=== PATIENT | male | born 1955 | race Caucasian/White ===

== ENCOUNTER 2018-12-16 00:37 | Observation (INO) ==
--- NOTE | 2018-12-16 12:15 | Internal Med History&Physical ---
Date of Encounter: 12/16/18 Time of Encounter: 11:00 Internal Medicine - H&P: HPI Chief complaint: Chest pain Admitted From: Home Plans for Post Hospital Care: Home History of present illness: Patient is a 63-year-old male with past medical history significant for atrial fibrillation who presents to the ER due to chest pressure. Patient reports a sudden onset of fullness in his chest without radiation and denies any provoking or relieving factors. Patient did state some improvement after belching and with taking his PPI. Patient continued to have symptoms with associated dizziness so decided come to the ER for evaluation. In the ER she was first set of troponins were negative. Patient will be admitted to the observation unit for ACS rule out. Past Med Surg Social Fam HX - Past Medical History Medical history: atrial fibrillation, GERD, hyperlipidemia Additional medical history: MINNIE,depression,impotence of organic nature,arrythmia cardiac,atherosclerosis,prostate hypertrophy benign,affective disorder,actinic keratosis,atherosclerosis of coronary artery Psychiatric history: anxiety, depression, panic disorder - Past Surgical History Surgical History: other Additional surgical history: nose fracture repair surgery,c olonoscopy,lithotripsy - Social History Smoking Status: Never smoker Smokeless Tobacco Status: Yes Alcohol use: occasionally, recent Drug use: none - Additional Family History Additional family history: Mom and dad with coronary arterial disease Internal Medicine - H&P: Meds Bisoprolol Fumarate 2.5 mg PO DAILY 12/13/18 [History] Pantoprazole Sodium 40 mg PO DAILY 12/13/18 [History] Allergy/AdvReac Type Severity Reaction Status Date / Time Penicillins Allergy See Verified 12/15/18 21:28 Comments pravastatin AdvReac Muscle Pain Verified 12/15/18 21:28 simvastatin AdvReac Muscle Pain Verified 12/15/18 21:28 All Systems PM: A 10-system review of systems was performed and is negative for pertinent findings except as documented above in the HPI. - Constitutional Vitals: Temp Pulse Resp BP Pulse Ox 97.8 F 64 18 128/77 95 12/16/18 11:58 12/16/18 11:58 12/16/18 11:58 12/16/18 11:58 12/16/18 11:58 Exam: General appearance: Present: A&O X 3, no acute distress - Head Head exam: Present: normocephalic - Eye Eye exam: Present: normal appearance - ENT ENT exam: Present: mucous membranes moist - Respiratory Respiratory exam: Present: CTAB. Absent: accessory muscle use, rales, rhonchi, wheezes - Cardiovascular Cardiovascular exam: Present: RRR, +S1, +S2. Absent: diastolic murmur, gallop, rubs, systolic murmur - GI/Abdominal GI/Abdominal exam: Present: normal bowel sounds, soft, no peritoneal signs. Absent: distended, tenderness - Extremities Exam Extremities exam: Absent: pedal edema - Neurological Exam Neurological exam: Present: alert, oriented X3, no focal deficits. Absent: altered - Psychiatric Psychiatric exam: -normal mood Skin exam: -normal color - Assessment and Plan (1) Chest pain Current Visit: No Status: Acute Assessment and plan: Patient's first set of troponins negative. Will monitor on telemetry and trend serial troponins. If Troponins negative, nuclear medicine stress test should be ordered in the morning for ACS rule out Qualifiers: Chest pain type: unspecified Qualified Code(s): R07.9 - Chest pain, unspecified (2) Frequent unifocal premature ventricular contractions Current Visit: No Status: Acute Assessment and plan: Continue home dose of beta greg (3) DVT prophylaxis Current Visit: Yes Status: Acute Assessment and plan: Subcutaneous heparin - Time Spent With Patient Total time spent is greater than 50% in coordination of care (as documented) at patient's floor/unit and/or counseling patient:
[2018-12-16] MEDS ORDERED: Naloxone 0.4 MG/ML INJ IVP PRN (12:18)
[2018-12-17 02:05] LABS: Basophils % 0.4 %; Eosinophils # 0.1 K/mcL (0.0-0.6); Eosinophils % 1.2 %; Hemoglobin 14.7 g/dL (12.9-16.9); Immature Granulocytes % 0.5 % (0-4); Lymphocytes # 2.9 K/mcL (0.6-4.6); Mean Corpuscular HGB Conc 34.2 g/dL (31.6-35.5); Mean Corpuscular Hemoglobin 33.2 pg (28.0-33.3); Mean Corpuscular Volume 97.1 fL (83.0-100.0); Mean Platelet Volume 10.2 fL (9.4-12.4); Monocytes # 0.9 K/mcL (0.0-1.3); Monocytes % 10.7 %; Neutrophils # 4.5 K/mcL (1.6-8.9); Platelet Count 196 K/mcL (140-400); Red Blood Count 4.43 M/mcL (4.19-5.50); Red Cell Distribution Width 11.9 % (11.5-14.5); Segmented Neutrophils % 53.2 %
[2018-12-17 02:25] LABS: BUN/Creatinine Ratio 13 (6-26); Blood Urea Nitrogen 14 mg/dL (8-23); Calcium 9.1 mg/dL (8.6-10.3); Carbon Dioxide 26 mEq/L (23-29); Chloride 105 mEq/L (98-107); Glucose 103 mg/dL (70-105); Osmolality,Calculated 293 (280-300); Potassium 4.2 mEq/L (3.5-5.1); Sodium 141 mEq/L (136-145); eGFR For Non-African Americans > 60 (> 60)
[2018-12-17 03:40] VITALS: BP 102/54
[2018-12-17] MEDS ORDERED: Regadenoson 0.4 MG/5 ML SYRINGE IVP ONE (06:20)
[2018-12-17] MEDS ORDERED: Metoprolol XL (24 HR) Succ 25 MG TAB.ER.24H PO SCH (09:00)
--- NOTE | 2018-12-17 11:33 | Discharge Summary ---
- NOTES TO OUTPATIENT PROVIDER Notes to Outpatient Provider: Presented with chest pain underwent cardiac stress test which was negative for any ischemia or infarct recommending follow-up as outpatient with GI for possible EGD-may need a Holter monitor as an outpatient Orders not resulted at time of discharge: Pending orders 12/16/18 21:06 NM emiliano perf SPECT multi [NM] Routine 12/17/18 10:37 EKG [ECG 12 lead ECG] [ECG] Routine Date of Encounter: 12/17/18 Time of Encounter: 11:29 - Discharge Diagnosis (1) Chest pain Priority: Primary Status: Acute Qualifiers: Chest pain type: unspecified Qualified Code(s): R07.9 - Chest pain, unspecified (2) Frequent unifocal premature ventricular contractions Priority: Secondary Status: Acute Hospital course: Mr. Hernandez is a 63 year old male past medical history ventricular tachyarrhythmia-he had nonsustained ventricular tachycardiac and 2007 cardiac catheter that time showed mild coronary plaquing maximum of 25% stenosis. Has been managed with beta greg-presented to [facility] ER with chest pain after eating lunch around 1:30 he felt it was a relatively gas and tried to belch repeatedly described as discomfort and tightness lasted approximately 6 hours. He felt as if he might vomit and he gagged and the chest discomfort resolved. He denies any palpitations-troponins have been negative he was transferred to [facility] for further workup and evaluation. EKG with no ST-T wave abnormalities patient was monitored overnight telemetry with occasional PVC lab work unremarkable troponin negative 3 cardiac echo with EF of 60% normal LV chamber size and function normal left ventricular diastolic function normal right ventricular structure and function unable to estimate RVSP due to lack of TR jet no significant valvular dysfunction. Patient underwent a cardiac stress test which was negative for any ischemia or infarct. Advised patient to follow-up with primary care provider since this provider knows him best and can adjust medications accordingly. Also advised patient to undergo an outpatient EGD and to follow-up with cardiology concerning PVCs. Patient may require Holter monitoring or loop monitor. Advised patient to continue home medication metoprolol. Patient verbalized understanding he is hemodynamically stable this time no chest pain and is ready for discharge. - Time Spent with Patient Total time spent providing and/or coordinating discharge services: - Discharge Medications Prescriptions: No Action Pantoprazole Sodium 40 mg PO DAILY Bisoprolol Fumarate 2.5 mg PO DAILY Home Medications: Bisoprolol Fumarate 2.5 mg PO DAILY 12/13/18 [History] Pantoprazole Sodium 40 mg PO DAILY 12/13/18 [History] Allergies/Adverse Reactions: Allergy/AdvReac Type Severity Reaction Status Date / Time Penicillins Allergy See Verified 12/15/18 21:28 Comments pravastatin AdvReac Muscle Pain Verified 12/15/18 21:28 simvastatin AdvReac Muscle Pain Verified 12/15/18 21:28 Date of admission: 12/16/18 05:39 Primary care physician: Kevin Jordan Discharging clinician: Arianne Kelly Anticipated date of discharge: 12/17/18 - Constitutional Vitals: Temp Pulse Resp BP Pulse Ox 97.7 F 60 16 102/54 95 12/17/18 03:34 12/17/18 03:34 12/17/18 03:34 12/17/18 03:34 12/17/18 03:34 Exam: Skin: Free of rash and discoloration. Eyes: Sclera is white. There is no discharge from eyes. ENMT: Oral/pharyngeal mucosa is normal in appearance. There is no discharge from nose or ears. Respiratory: Normal breath sounds with no crackles and wheezes bilaterally. CV: Heart is regular with no gallop or murmur. GI: Abdomen is flat and soft with no palpable mass or visceromegaly. : There is no tenderness in patient's flanks bilaterally. Neuro exam: He has good strength in upper and lower extremities. He has normal eye movements. Psychiatric: He has normal affect. His thought process is appropriate to the situation. - Patient Status Disposition: Home, Self-Care Condition: Good Functional capacity at discharge: independent ambulation Overall status at discharge: patient is back to baseline - Discharge Instructions Follow Up With: Silver Mullins MD [Partnered Physician] - (Appointment has been requested; our offices will call with an appointment. If you do not hear from us, please contact our offices at [phone]. Thank you.) Kevin Jordan MD [Primary Care Provider] - 12/24/18 3:00 pm Nilson Huffman MD [Non-Partnered Physician] - (Appointment has been requested. Our offices will contact you with an appointment time and date. ) - Diet and Activity Activity: increase activity as tolerated Diet: advance to your usual diet
--- NOTE | 2018-12-18 17:58 | Electrocardiograph Report ---
[address] [address] Test Date: 2018-12-17 Pat Name: Corbin Hernandez Department: 113 Room: 3B Gender: M [employer]: : 1955 Requested By: Arianne Kelly Order Number: [id number] Reading MD: Rich Escoto Measurements Intervals [place] Rate: 67 P: 12 NC: 168 QRS: 65 QRSD: 98 T: 17 QT: 392 QTc: 408 Interpretive Statements SINUS RHYTHM Electronically Signed On 12-18-2018 17:56:37 EDT by Rich Escoto
== END 2018-12-17 12:20 | disposition home or self-care (01) ==
LOC: 3BNU
PROVIDERS: ADMIT Internal Medicine; ATTEND Internal Medicine